=== PATIENT | female | born 1950 | race Caucasian/White ===

== ENCOUNTER 2019-01-18 18:47 | Inpatient (IN) | payer MEDICARE, OTHER ==
[~2019-01-18] VITALS: Ht 162.6 cm; Wt 53.5 kg
[~2019-01-18 18:47] MED LIST: ALBIPROI; ALBIPROI INH; ALBU90OI61 INH; ASPI81CH PO; ASPI81EC PO; ATOR20 PO; Aspir 8181 MG PO; Aspirin EC81 MG PO; CITA20 PO; COMBIVENT RESPIM4 GM IH; Citalopram HBr40 MG PO; Crestor40 MG PO; DIAZ10 PO; DIAZ5 PO; DOCU100 PO; DOXY100 PO; FERR325 PO; FISH1000 PO; FLUSAL2505 INH; FLUT110OIA; FLUT110OIA IH; FLUT44OIA INH; FURO20 PO; GUAI600T33 PO; HYDACE10B PO; HYDACE5 PO; HYDACE5325 PO; HYDACE7.5 PO; HYDR-86 PO; IRON DAILY; LISI20 PO; LORTAB 10-3251 EACH PO; METO50ER PO; METPRE4DP PO; MINOIL PR; MIRT15 PO; MIRT30 PO; Norco 10-325 T1 EACH PO; Norco 5-325 Ta1 EACH PO; OMEP20ER PO; ONDA4ODT MM; OXYACE7.5T PO; OXYC10TA19 PO; POLY17UD PO; POTCHL10ER PO; PRAV20 PO; PROBIOTIC; PROM25 PO; Pravastatin Sod40 MG PO; Prednisone20 MG PO; Prilosec Otc20 MG PO; QUET25 PO; RANI150 PO; RXHYDACE PO; SENN187 PO; TIZA4 PO; TRAM50 PO; TRAZ100 PO; TRAZ50 PO; TUDORZA PRESS400 MCG IH; VENL75ER PO; Vibramycin100 MG PO; WARF2.5 PO; WARF5 PO; XARELTO PO; XARELTO15 MG PO; XARELTO20 MG PO; ZIPR80 PO; Zithromax250 MG PO
[2019-01-18 19:35] LABS: BASOPHILS ABSOLUTE AUTO 0.01 K/mm3 (0.00-0.23); BASOPHILS PERCENT AUTO 0 % (0-2); EOSINOPHILS PERCENT AUTO 0 % (0-6); Hemoglobin 14.9 g/dL (11.5-16.0); IMMATURE GRAN ABSOLUTE AUTO 0.01 K/mm3 (0.00-0.10); IMMATURE GRAN PERCENT AUTO 0 % (0-1); LYMPHOCYTES ABSOLUTE AUTO 0.53 K/mm3 (0.84-5.20); LYMPHOCYTES PERCENT AUTO 13 % (21-46); MONOCYTES PERCENT AUTO 2 % (4-13); Mean Corpuscular HGB 31.2 pg (26.0-34.0); Mean Corpuscular HGB Conc 32.4 g/dL (31.5-36.5); Mean Corpuscular Volume 96 fL (80-100); Mean Platelet Volume 9.9 fL (9.1-12.4); NEUTROPHILS ABSOLUTE AUTO 3.58 K/mm3 (1.96-9.15); NEUTROPHILS PERCENT AUTO 85 % (41-73); Platelet Count 177 K/mm3 (150-400); RDW Coefficient Variation 12.7 % (11.7-14.2); Red Blood Cell Count 4.77 M/mm3 (3.80-5.20); White Blood Cell Count 4.23 K/mm3 (4.00-11.30)
[2019-01-18 19:57] LABS: Alanine Aminotransfer (ALT/SGP 23 U/L (12-78); Albumin, Blood 3.1 g/dL (3.4-5.0); Albumin/Globulin Ratio 0.7 (0.8-1.8); Alk Phos 124 U/L (50-136); Anion Gap 7 mmol/L (6-16); Aspartate Aminotrans (AST/SGOT 63 U/L (12-37); Bilirubin, Total 0.4 mg/dL (0.1-1.0); Blood Urea Nitrogen 13 mg/dL (8-24); Bun/Creatinine Ratio 21.3 (12.0-20.0); CO2, Blood 32 mmol/L (21-32); Calcium, Blood 8.8 mg/dL (8.5-10.1); Chloride, Blood 102 mmol/L (98-108); Creatinine, Blood 0.61 mg/dL (0.40-1.00); Globulin, Blood 4.2 g/dL (2.2-4.0); Glomerular Filtration Rate >60 (60-); Glucose, Blood 230 mg/dL (70-99); Potassium, Blood 3.5 mmol/L (3.5-5.5); Sodium, Blood 141 mmol/L (136-145); Total Protein, Blood 7.3 g/dL (6.4-8.2)
[2019-01-18 20:43] LABS: PO2 Arterial 70.5 mmHg (80-100); pH Blood Arterial 7.45 (7.35-7.45)
[2019-01-18] MEDS ORDERED: RISP.25 PO (20:47)
[2019-01-18] MEDS ORDERED: MORPHINE SULFAT10 MG PO (20:48)
[2019-01-18] MEDS ORDERED: Carvedilol3.125 MG PO (20:49)
[2019-01-18] MEDS ORDERED: PRINIVIL10 MG PO (20:49)
[2019-01-18] MEDS ORDERED: Isosorbide Mono30 MG PO (20:55)
[2019-01-18] MEDS ORDERED: GABA300 PO (20:55)
[2019-01-18] MEDS ORDERED: Zantac150 MG PO (21:06)
[2019-01-18] MEDS ORDERED: CLEARLAX119 GM PO (21:07)
[2019-01-18] MEDS ORDERED: Flovent 220 Ora12 GM INH (21:07)
[2019-01-18 23:49] LABS: Source, Urine Clean Catch
--- NOTE | 2019-01-18 23:51 | NUR ---
PT ARRIVED TO PCU 13 Pt arrived to pcu 13 at approx 2250 via gurney. pt transferred to PCU 13 bed via slider sheet d/t pt reported weakness. Pt on 2L NC at time of arrival, breathing easy and unlabored, pt reports SOB and DÍAZ. VSS. Tele monitor reveals NSR at 84. Pt denies chest pain or pressure. Pt does report L chest wall pain, pt medicated per emar. RT at bedside with pt at approx 2330 for chest physiotherapy, pt tolerated well. Pt also placed on airvo for humidification. Pt tolerating RT treatments well. See admission assessment for detailed systems assessment.
[2019-01-19 00:10] LABS: Appearance, Urine Clear (Clear); Bilirubin, Urine Neg (Neg); Blood, Urine 1+ (Neg); Color, Urine Yellow (P-Yellow); Glucose Qualitative, Urine 2+ (Neg); Ketones, Urine 3+ (Neg); Leukocyte Esterase, Urine 1+ (Neg); Nitrite, Urine Neg (Neg); Protein, Urine 2+ (Neg); Urobilinogen, Urine NORM (Normal)
[2019-01-19 00:14] LABS: Bacteria Rare /hpf; Red Blood Cells, Urine 0-2 /hpf (0-2); Squamous Epithelial Cells Rare /hpf (Few); White Blood Cells, Urine 0-2 /hpf (0-5)
[2019-01-19 01:19] LABS: Adenovirus Not Detected (NOT DETECT); Bordetella pertussis Not Detected (NOT DETECT); Chlamydophila pneumoniae Not Detected (NOT DETECT); Coronavirus 229E Not Detected (NOT DETECT); Coronavirus HKU1 Not Detected (NOT DETECT); Coronavirus NL63 Not Detected (NOT DETECT); Coronavirus OC43 Not Detected (NOT DETECT); Human Metapneumovirus Not Detected (NOT DETECT); Human Rhinovirus/Enterovirus Detected (NOT DETECT); Influenza A Not Detected (NOT DETECT); Influenza A/2009-H1 Not Detected (NOT DETECT); Influenza A/H1 Not Detected (NOT DETECT); Influenza A/H3 Not Detected (NOT DETECT); Influenza B Not Detected (NOT DETECT); Mycoplasma pneumoniae Not Detected (NOT DETECT); Parainfluenza Virus 1 Not Detected (NOT DETECT); Parainfluenza Virus 2 Not Detected (NOT DETECT); Parainfluenza Virus 3 Not Detected (NOT DETECT); Parainfluenza Virus 4 Not Detected (NOT DETECT); Respiratory Syncytial Virus Not Detected (NOT DETECT)
[2019-01-19 01:38] LABS: BASOPHILS ABSOLUTE AUTO 0.01 K/mm3 (0.00-0.23); BASOPHILS PERCENT AUTO 0 % (0-2); EOSINOPHILS PERCENT AUTO 0 % (0-6); Hematocrit 37.6 % (33.0-51.0); Hemoglobin 12.4 g/dL (11.5-16.0); IMMATURE GRAN ABSOLUTE AUTO 0.01 K/mm3 (0.00-0.10); IMMATURE GRAN PERCENT AUTO 0 % (0-1); LYMPHOCYTES ABSOLUTE AUTO 0.71 K/mm3 (0.84-5.20); LYMPHOCYTES PERCENT AUTO 18 % (21-46); MONOCYTES ABSOLUTE AUTO 0.33 K/mm3 (0.16-1.47); MONOCYTES PERCENT AUTO 8 % (4-13); Mean Corpuscular HGB 31.4 pg (26.0-34.0); Mean Corpuscular Volume 95 fL (80-100); Mean Platelet Volume 10.2 fL (9.1-12.4); NEUTROPHILS ABSOLUTE AUTO 2.99 K/mm3 (1.96-9.15); NEUTROPHILS PERCENT AUTO 74 % (41-73); Platelet Count 138 K/mm3 (150-400); RDW Coefficient Variation 12.6 % (11.7-14.2); Red Blood Cell Count 3.95 M/mm3 (3.80-5.20); White Blood Cell Count 4.05 K/mm3 (4.00-11.30)
[2019-01-19 01:55] LABS: Alanine Aminotransfer (ALT/SGP 15 U/L (12-78); Albumin, Blood 2.6 g/dL (3.4-5.0); Albumin/Globulin Ratio 0.8 (0.8-1.8); Alk Phos 95 U/L (50-136); Anion Gap 8 mmol/L (6-16); Aspartate Aminotrans (AST/SGOT 41 U/L (12-37); Bilirubin, Total 0.4 mg/dL (0.1-1.0); Blood Urea Nitrogen 12 mg/dL (8-24); Bun/Creatinine Ratio 22.5 (12.0-20.0); CO2, Blood 31 mmol/L (21-32); Calcium, Blood 8.3 mg/dL (8.5-10.1); Chloride, Blood 105 mmol/L (98-108); Creatinine, Blood 0.53 mg/dL (0.40-1.00); Globulin, Blood 3.3 g/dL (2.2-4.0); Glomerular Filtration Rate >60 (60-); Glucose, Blood 141 mg/dL (70-99); International Normalized Ratio 1.04; Magnesium, Blood 1.9 mg/dL (1.6-2.4); Potassium, Blood 3.3 mmol/L (3.5-5.5); Sodium, Blood 144 mmol/L (136-145); Total Protein, Blood 5.9 g/dL (6.4-8.2)
--- NOTE | 2019-01-19 05:24 | NUR ---
Shift Summary No acute changes this shift. VSS. Pt breathing easy and unlabored on airvo at 2L. Airvo is used for humidification. Pt coughing, thick, webb mucous. Chest physiotherapy performed x1 this shift. Pt insturcted on use of flutter valve, complaint and using flutter valve this shift. Pt ambulates with SBA to Bathroom for voiding. Denies chest pain or pressure. Denies dizziness or notable SOB with ambulation. Pt is alert and oriented, calls appropriately, able to make needs known. Will continue to monitor and provide care until day RN assumes care.
--- NOTE | 2019-01-19 08:04 | NUR ---
AM NOTE. ASSUMED CARE OF PT APROX 0700. PT IS A&Ox4 AND SBA IN THE ROOM. PT WAS ADMITTED FOR RESP FAILURE. PT IS ON 2L NC AT THIS TIME WITH O2 SATS AT 93%. PT WANTED A BREAK FROM THE AIRVO. PT IS ON RA AT HOME. L/S COARSE RHOCHI T/O AND DIM IN THE BASES, PT WAS UNABLE TO TOLERATE THE CHEST PHSYIOTHERAPY THIS AM D/T SEVERE PAIN ON THE RIGHT SIDE/LOWER BACK. PT INSTRUCTED TO USE THE FLUTTER VALVE AT THIS TIME INSTEAD. PT AGREEABLE TO THIS PLAN OF CARE. PT IS IN NSR IN THE 70'S-90'S. PT'S BP 179/99, NO EDEMA NOTED ON ASSESSMENT. BT PRESENT AND NORMOACTIVE, ABD IS SOFT AND NONTENDER TO PALP. CALL LIGHT IN REACH, BED IS LOCKED AND LOW WILL CONTINUE TO MONITOR.
--- NOTE | 2019-01-19 16:46 | NUR ---
PATIENT ARRIVES VIA W/C FROM PCU AT 1610. ON 4 LPM VIA N/C. SPEAKS IN COMPLETE SENTENCES. AMBULATORY FROM CHAIR TO BED WITH STANDBY ASSIST. LUNGS CLEAR TO DIMINISHED T/O. SATS MID TO LOW 90'S. ORIENTED TO ROOM. TM.
--- NOTE | 2019-01-19 17:12 | NUR ---
PER DR. LANE Aaron CONTINUOUS SAT MONITOR.
--- NOTE | 2019-01-20 04:37 | NUR ---
SHIFT SUMMARY: 68 Y/O FEMALE RESTED COMFORTABLY IN HIGH FOWLERS WHILE WEARING O2 AT 2L/M PER NASAL CANNULA, INCREASED DYSPNEA NOTED WITH SLIGHT ACTIVITY, ABLE TRANSFER TO [facility] X 1 STANDBY ASSIST, DENIES PAIN OR NAUSEA, BED ALARM APPLIED, BED LOW POSITION.
[2019-01-20] MEDS ORDERED: ALBU2.5V5 INH (09:54)
[2019-01-20] MEDS ORDERED: GUAI600T33 PO (10:07)
[2019-01-20] MEDS ORDERED: ALBU3IS INH (10:10)
[2019-01-20] MEDS ORDERED: AZIT250 PO (10:12)
[2019-01-20] MEDS ORDERED: FLUT1DIS5 INH (10:13)
[2019-01-20] MEDS ORDERED: Prednisone10 MG PO (10:15)
--- NOTE | 2019-01-20 11:10 | NUR ---
In responding to patient referral, I visited patient. Patient openly shares about the of her 2 years ago, the painful family unit complications and her on-going medical issues. Patient becomes quite tearful as she tells of her 's at home and reveals that both her and the patient were on hospice at the time of his passing. She also is dramatically effected by the tension that exists between her son, Liam, and the rest of the family. Patient talks about the long battles she has had with her health and how weary she is. I listen empathically, provide grief support, provide pastoral community health counselor centered around forgiveness and reconciliation, reinforce helpful attitudes and practices and provide prayer. Patient responds well and shows signs of catharsis and reduced stress. I will continue to remain available to patient and family.
--- NOTE | 2019-01-20 15:03 | NUR ---
Pt. Is doing well , pastoral care provided and pt. may go home today or morropw.
--- NOTE | 2019-01-20 15:25 | NUR ---
DISCHARGE PT DISCHARGED TO HOME WITH HOME HEALTH. THIS RN EXPLAINED DISCHARGE INSTSRUCTIONS AND MEDICATIONS TO PT AND SHE REPORTS SHE UNDERSTANDS. PT TRASNFERRED TO PRIVATE VEHICLE VIA WHEELCHAIR BY HARDBOARD COATING MACHINE OPERATOR. PT'S BELONGINGS WITH PT. PT HAS NEW PORTABLE OXYGEN WITH HER.
== END 2019-01-20 14:55 | disposition home health service (06) | DRG 189 ==
LOC: ER 18:47 → ERHOLD 21:25 → PCU 22:49 → MEDS 01-19 16:12 → ENPENDDIS 01-20 10:00 → MEDS 01-20 14:55
PROVIDERS: Emergency Medicine; Nurse Practitioner Acute Care; ADMIT Hospitalist
DX: J96.01 Acute respiratory failure with hypoxia (principal); J18.9 Pneumonia, unspecified organism; J44.1 Chronic obstructive pulmonary disease with (acute) exacerbation; F11.20 Opioid dependence, uncomplicated; I24.8 Other forms of acute ischemic heart disease; J40 Bronchitis, not specified as acute or chronic; J06.9 Acute upper respiratory infection, unspecified; I25.2 Old myocardial infarction; Z86.711 Personal history of pulmonary embolism; E78.5 Hyperlipidemia, unspecified; I25.10 Atherosclerotic heart disease of native coronary artery without angina pectoris; F41.8 Other specified anxiety disorders; F17.210 Nicotine dependence, cigarettes, uncomplicated; G47.00 Insomnia, unspecified; G89.4 Chronic pain syndrome; E78.00 Pure hypercholesterolemia, unspecified; Z79.82 Long term (current) use of aspirin; K21.0 Gastro-esophageal reflux disease with esophagitis; D69.6 Thrombocytopenia, unspecified; E87.6 Hypokalemia; I10 Essential (primary) hypertension; F41.9 Anxiety disorder, unspecified; M79.7 Fibromyalgia
CPT/HCPCS: 0099U; 36415; 36600; 71045; 71046; 71260; 80053; 81001; 82803; 83605; 83690; 83735; 83880; 84145; 84484; 85025; 85610; 87040; 87070; 87086; 87205; 93005; 93010; 93306; 94640; 94667; 94668; 94760; 94761; 96365; 96367; 97110; 97116; 97162; 97166; 97530; 97535; 99285-25; A9270-GY; J0456; J0696; J1650; J2930; J3010; J7030; J7050; Q9967

== ENCOUNTER 2019-06-30 18:14 | Emergency (ER) | payer MEDICARE, OTHER ==
[~2019-06-30] VITALS: Ht 162.6 cm; Wt 59.0 kg
[~2019-06-30 18:14] MED LIST changes: +ALBU2.5V5 INH; +ALBU3IS INH; +AZIT250 PO; +CLEARLAX119 GM PO; +Carvedilol3.125 MG PO; +FLUT1DIS5 INH; +Flovent 220 Ora12 GM INH; +GABA300 PO; +Isosorbide Mono30 MG PO; +MORPHINE SULFAT10 MG PO; +PRINIVIL10 MG PO; +Prednisone10 MG PO; +RISP.25 PO; +Zantac150 MG PO
[2019-06-30 19:11] LABS: BASOPHILS ABSOLUTE AUTO 0.04 K/mm3 (0.00-0.23); BASOPHILS PERCENT AUTO 1 % (0-2); EOSINOPHILS ABSOLUTE AUTO 0.09 K/mm3 (0.00-0.68); EOSINOPHILS PERCENT AUTO 2 % (0-6); Hematocrit 40.3 % (33.0-51.0); Hemoglobin 12.7 g/dL (11.5-16.0); IMMATURE GRAN ABSOLUTE AUTO 0.01 K/mm3 (0.00-0.10); IMMATURE GRAN PERCENT AUTO 0 % (0-1); LYMPHOCYTES ABSOLUTE AUTO 1.66 K/mm3 (0.84-5.20); LYMPHOCYTES PERCENT AUTO 36 % (21-46); MONOCYTES ABSOLUTE AUTO 0.32 K/mm3 (0.16-1.47); MONOCYTES PERCENT AUTO 7 % (4-13); Mean Corpuscular HGB 31.1 pg (26.0-34.0); Mean Corpuscular HGB Conc 31.5 g/dL (31.5-36.5); Mean Corpuscular Volume 99 fL (80-100); Mean Platelet Volume 9.7 fL (9.1-12.4); NEUTROPHILS ABSOLUTE AUTO 2.56 K/mm3 (1.96-9.15); NEUTROPHILS PERCENT AUTO 55 % (41-73); Platelet Count 166 K/mm3 (150-400); RDW Coefficient Variation 12.5 % (11.7-14.2); RDW Standard Deviation 45.1 fL (35.1-46.3); Red Blood Cell Count 4.09 M/mm3 (3.80-5.20); White Blood Cell Count 4.68 K/mm3 (4.00-11.30)
[2019-06-30 19:17] LABS: Source, Urine Clean Catch
[2019-06-30 19:23] LABS: Bilirubin, Urine Neg (Neg); Blood, Urine Neg (Neg); Glucose Qualitative, Urine Neg (Neg); Ketones, Urine Neg (Neg); Leukocyte Esterase, Urine 1+ (Neg); Nitrite, Urine Neg (Neg); Protein, Urine Neg (Neg); Urobilinogen, Urine 2+ (Normal)
[2019-06-30 19:33] LABS: Appearance, Urine Clear (Clear); Color, Urine Yellow (P-Yellow); Red Blood Cells, Urine 0-2 /hpf (0-2)
[2019-06-30 19:34] LABS: Bacteria Rare /hpf; Squamous Epithelial Cells Few /hpf (Few)
[2019-06-30 19:40] LABS: Albumin, Blood 3.5 g/dL (3.4-5.0); Albumin/Globulin Ratio 1.2 (0.8-1.8); Alk Phos 114 U/L (50-136); Anion Gap 2 mmol/L (6-16); Aspartate Aminotrans (AST/SGOT 28 U/L (12-37); Bilirubin, Total 0.4 mg/dL (0.1-1.0); Blood Urea Nitrogen 16 mg/dL (8-24); Bun/Creatinine Ratio 24.7 (12.0-20.0); CO2, Blood 34 mmol/L (21-32); Calcium, Blood 8.5 mg/dL (8.5-10.1); Chloride, Blood 106 mmol/L (98-108); Creatinine, Blood 0.65 mg/dL (0.40-1.00); Glomerular Filtration Rate >60 (60-); Glucose, Blood 101 mg/dL (70-99); Potassium, Blood 3.5 mmol/L (3.5-5.5); Sodium, Blood 142 mmol/L (136-145); Total Protein, Blood 6.5 g/dL (6.4-8.2)
[2019-06-30 19:50] LABS: Alanine Aminotransfer (ALT/SGP 15 U/L (12-78)
[2019-06-30] MEDS ORDERED: LIDO700A20 TOP (20:51)
== END 2019-06-30 21:15 | disposition home or self-care (01) ==
LOC: ER 18:14
PROVIDERS: Physician Assistant
DX: R07.89 Other chest pain (principal); Z88.2 Allergy status to sulfonamides; Z79.899 Other long term (current) drug therapy; Z79.82 Long term (current) use of aspirin; Z79.2 Long term (current) use of antibiotics; Z79.52 Long term (current) use of systemic steroids; I25.2 Old myocardial infarction; J44.9 Chronic obstructive pulmonary disease, unspecified; F32.9 Major depressive disorder, single episode, unspecified; Z87.891 Personal history of nicotine dependence
CPT/HCPCS: 36415; 74176; 80053; 81001; 83690; 85025; 87086; 99284-25; A9270-GY

== ENCOUNTER 2019-09-22 10:25 | Emergency (ER) | payer MEDICARE, OTHER ==
[~2019-09-22] VITALS: Ht 162.6 cm; Wt 59.0 kg
[~2019-09-22 10:25] MED LIST changes: +LIDO700A20 TOP
[2019-09-22 10:54] LABS: BASOPHILS ABSOLUTE AUTO 0.02 K/mm3 (0.00-0.23); BASOPHILS PERCENT AUTO 0 % (0-2); EOSINOPHILS ABSOLUTE AUTO 0.04 K/mm3 (0.00-0.68); EOSINOPHILS PERCENT AUTO 1 % (0-6); Hematocrit 40.2 % (33.0-51.0); IMMATURE GRAN ABSOLUTE AUTO 0.02 K/mm3 (0.00-0.10); IMMATURE GRAN PERCENT AUTO 0 % (0-1); LYMPHOCYTES ABSOLUTE AUTO 0.69 K/mm3 (0.84-5.20); LYMPHOCYTES PERCENT AUTO 10 % (21-46); MONOCYTES ABSOLUTE AUTO 0.33 K/mm3 (0.16-1.47); MONOCYTES PERCENT AUTO 5 % (4-13); Mean Corpuscular HGB 31.1 pg (26.0-34.0); Mean Corpuscular HGB Conc 32.3 g/dL (31.5-36.5); Mean Corpuscular Volume 96 fL (80-100); Mean Platelet Volume 9.6 fL (9.1-12.4); NEUTROPHILS PERCENT AUTO 85 % (41-73); Platelet Count 158 K/mm3 (150-400); RDW Coefficient Variation 12.2 % (11.7-14.2); RDW Standard Deviation 42.9 fL (35.1-46.3); Red Blood Cell Count 4.18 M/mm3 (3.80-5.20)
[2019-09-22 11:16] LABS: Alanine Aminotransfer (ALT/SGP 16 U/L (12-78); Albumin, Blood 3.6 g/dL (3.4-5.0); Albumin/Globulin Ratio 1.1 (0.8-1.8); Alk Phos 127 U/L (50-136); Anion Gap 8 mmol/L (6-16); Aspartate Aminotrans (AST/SGOT 31 U/L (12-37); Bilirubin, Total 0.6 mg/dL (0.1-1.0); Blood Urea Nitrogen 10 mg/dL (8-24); Bun/Creatinine Ratio 12.9 (12.0-20.0); CO2, Blood 29 mmol/L (21-32); Calcium, Blood 8.2 mg/dL (8.5-10.1); Chloride, Blood 104 mmol/L (98-108); Creatinine, Blood 0.77 mg/dL (0.40-1.00); Globulin, Blood 3.3 g/dL (2.2-4.0); Glomerular Filtration Rate >60 (60-); Glucose, Blood 123 mg/dL (70-99); Potassium, Blood 3.5 mmol/L (3.5-5.5); Sodium, Blood 141 mmol/L (136-145); Total Protein, Blood 6.9 g/dL (6.4-8.2); Troponin I <0.015 ng/mL (0.000-0.040)
[2019-09-22 12:09] LABS: Source, Urine Clean Catch
[2019-09-22 12:18] LABS: Bilirubin, Urine Neg (Neg); Blood, Urine Neg (Neg); Glucose Qualitative, Urine Neg (Neg); Ketones, Urine Neg (Neg); Leukocyte Esterase, Urine 1+ (Neg); Nitrite, Urine Neg (Neg); Protein, Urine Neg (Neg); Urobilinogen, Urine NORM (Normal)
[2019-09-22 12:29] LABS: Appearance, Urine Clear (Clear); Color, Urine Yellow (P-Yellow)
[2019-09-22 12:30] LABS: Bacteria Few /hpf; Red Blood Cells, Urine 0-2 /hpf (0-2); Squamous Epithelial Cells Few /hpf (Few)
== END 2019-09-22 13:02 | disposition home or self-care (01) ==
LOC: ER 10:25
PROVIDERS: Emergency Medicine
DX: S70.02XA Contusion of left hip, initial encounter (principal); R29.898 Other symptoms and signs involving the musculoskeletal system; I25.2 Old myocardial infarction; J44.9 Chronic obstructive pulmonary disease, unspecified; F31.9 Bipolar disorder, unspecified; D64.9 Anemia, unspecified; I10 Essential (primary) hypertension; F41.9 Anxiety disorder, unspecified; K21.9 Gastro-esophageal reflux disease without esophagitis; Z88.2 Allergy status to sulfonamides; Z79.899 Other long term (current) drug therapy; Z79.82 Long term (current) use of aspirin; Z87.891 Personal history of nicotine dependence; W07.XXXA Fall from chair, initial encounter
CPT/HCPCS: 73502; 80053; 81001; 84484; 85025; 87086; 93005; 93010; 99284-25

== ENCOUNTER 2019-09-22 18:07 | Inpatient (IN) | payer MEDICARE, OTHER ==
[~2019-09-22] VITALS: Ht 162.6 cm; Wt 58.5 kg
[2019-09-22 19:55] LABS: Troponin I 0.683 ng/mL (0.000-0.040)
[2019-09-22 20:05] LABS: BASOPHILS ABSOLUTE AUTO 0.02 K/mm3 (0.00-0.23); BASOPHILS PERCENT AUTO 0 % (0-2); EOSINOPHILS ABSOLUTE AUTO 0.01 K/mm3 (0.00-0.68); EOSINOPHILS PERCENT AUTO 0 % (0-6); Hematocrit 41.3 % (33.0-51.0); Hemoglobin 13.5 g/dL (11.5-16.0); IMMATURE GRAN ABSOLUTE AUTO 0.02 K/mm3 (0.00-0.10); IMMATURE GRAN PERCENT AUTO 0 % (0-1); LYMPHOCYTES ABSOLUTE AUTO 0.71 K/mm3 (0.84-5.20); LYMPHOCYTES PERCENT AUTO 9 % (21-46); MONOCYTES ABSOLUTE AUTO 0.52 K/mm3 (0.16-1.47); MONOCYTES PERCENT AUTO 7 % (4-13); Mean Corpuscular HGB 30.8 pg (26.0-34.0); Mean Corpuscular HGB Conc 32.7 g/dL (31.5-36.5); Mean Corpuscular Volume 94 fL (80-100); NEUTROPHILS ABSOLUTE AUTO 6.41 K/mm3 (1.96-9.15); NEUTROPHILS PERCENT AUTO 83 % (41-73); Platelet Count 170 K/mm3 (150-400); RDW Coefficient Variation 12.1 % (11.7-14.2); RDW Standard Deviation 42.4 fL (35.1-46.3); Red Blood Cell Count 4.38 M/mm3 (3.80-5.20); White Blood Cell Count 7.69 K/mm3 (4.00-11.30)
[2019-09-22 20:19] LABS: Anion Gap 7 mmol/L (6-16); Blood Urea Nitrogen 9 mg/dL (8-24); Bun/Creatinine Ratio 12.2 (12.0-20.0); CO2, Blood 30 mmol/L (21-32); Calcium, Blood 8.6 mg/dL (8.5-10.1); Chloride, Blood 104 mmol/L (98-108); Creatinine, Blood 0.74 mg/dL (0.40-1.00); Glomerular Filtration Rate >60 (60-); Glucose, Blood 112 mg/dL (70-99); Potassium, Blood 3.4 mmol/L (3.5-5.5); Sodium, Blood 141 mmol/L (136-145)
[2019-09-22 21:34] LABS: Troponin I 1.12 ng/mL (0.000-0.040)
--- NOTE | 2019-09-22 22:51 | NUR ---
REPORT RECIEVED REPORT FROM WENDY DELUNA ED @ 0070. AWAITING PATIENT ARRIVAL
[2019-09-23 00:11] LABS: International Normalized Ratio 1.02; Prothrombin Time Results 10.9 Sec (9.7-11.5)
[2019-09-23 00:32] LABS: Creatine Kinase MB 2.1 ng/mL (0.0-3.6); Creatine Kinase MB Index 0.9 (0.0-4.0)
[2019-09-23 02:52] LABS: Adenovirus Not Detected (NOT DETECT); Bordetella pertussis Not Detected (NOT DETECT); Chlamydophila pneumoniae Not Detected (NOT DETECT); Coronavirus 229E Not Detected (NOT DETECT); Coronavirus HKU1 Not Detected (NOT DETECT); Coronavirus NL63 Not Detected (NOT DETECT); Coronavirus OC43 Not Detected (NOT DETECT); Human Metapneumovirus Not Detected (NOT DETECT); Human Rhinovirus/Enterovirus Not Detected (NOT DETECT); Influenza A/2009-H1 Not Detected (NOT DETECT); Influenza A/H1 Not Detected (NOT DETECT); Influenza A/H3 Not Detected (NOT DETECT); Influenza B Not Detected (NOT DETECT); Mycoplasma pneumoniae Not Detected (NOT DETECT); Parainfluenza Virus 1 Not Detected (NOT DETECT); Parainfluenza Virus 2 Not Detected (NOT DETECT); Parainfluenza Virus 3 Not Detected (NOT DETECT); Parainfluenza Virus 4 Not Detected (NOT DETECT); Respiratory Syncytial Virus Not Detected (NOT DETECT)
[2019-09-23 05:42] LABS: BASOPHILS ABSOLUTE AUTO 0.03 K/mm3 (0.00-0.23); BASOPHILS PERCENT AUTO 0 % (0-2); EOSINOPHILS ABSOLUTE AUTO 0.04 K/mm3 (0.00-0.68); EOSINOPHILS PERCENT AUTO 1 % (0-6); Hematocrit 40.6 % (33.0-51.0); IMMATURE GRAN ABSOLUTE AUTO 0.02 K/mm3 (0.00-0.10); IMMATURE GRAN PERCENT AUTO 0 % (0-1); LYMPHOCYTES ABSOLUTE AUTO 1.21 K/mm3 (0.84-5.20); LYMPHOCYTES PERCENT AUTO 18 % (21-46); MONOCYTES ABSOLUTE AUTO 0.56 K/mm3 (0.16-1.47); MONOCYTES PERCENT AUTO 8 % (4-13); Mean Corpuscular HGB 30.7 pg (26.0-34.0); Mean Corpuscular Volume 96 fL (80-100); Mean Platelet Volume 9.6 fL (9.1-12.4); NEUTROPHILS ABSOLUTE AUTO 4.89 K/mm3 (1.96-9.15); NEUTROPHILS PERCENT AUTO 73 % (41-73); Platelet Count 151 K/mm3 (150-400); RDW Coefficient Variation 12.1 % (11.7-14.2); RDW Standard Deviation 42.4 fL (35.1-46.3); Red Blood Cell Count 4.24 M/mm3 (3.80-5.20); White Blood Cell Count 6.75 K/mm3 (4.00-11.30)
--- NOTE | 2019-09-23 05:47 | NUR ---
SHIFT SUMMARY RECIEVED REPORT FROM REGI NGUYEN, ED @ 2632. PATIENT ARRIVED VIA STRETCHER @ 2305; LITTLE ASSISTANCE REQUIRED DURING TRANSFER. ORIENTED TO ROOM AND CALL SYSTEM. A/O, ABLE TO MAKE NEEDS KNOWN. COOPERATIVE WITH CARE. ANSWERS QUESTIONS APPROPRIATELY. CURRENTLY WEARING 2L VIA NC SPO2 >92%; RESPIRATIONS EVEN WITH EQUAL RISE/FALL. HEPARIN INFUSING TO RFA. NEW 22G IV PLACED TO LAC FOR K+ INFUSION; NO COMPLICATIONS. UP WITH 1P ASSIST TO BSC. NOTHING ACUTE NOTED. VSS. BED IN LOWEST POSITION. CALL LIGHT AND BELONGINGS WITHIN REACH. WCTM. REPORT TO ONCNATTY NGUYEN.
[2019-09-23 06:07] LABS: Alanine Aminotransfer (ALT/SGP 16 U/L (12-78); Albumin, Blood 3.2 g/dL (3.4-5.0); Albumin/Globulin Ratio 0.9 (0.8-1.8); Alk Phos 123 U/L (50-136); Anion Gap 6 mmol/L (6-16); Aspartate Aminotrans (AST/SGOT 32 U/L (12-37); Bilirubin, Total 1.3 mg/dL (0.1-1.0); Blood Urea Nitrogen 9 mg/dL (8-24); Bun/Creatinine Ratio 13.1 (12.0-20.0); CO2, Blood 33 mmol/L (21-32); CPK Creatine Kinase 336 U/L (26-193); Calcium, Blood 8.6 mg/dL (8.5-10.1); Chloride, Blood 102 mmol/L (98-108); Creatinine, Blood 0.69 mg/dL (0.40-1.00); Globulin, Blood 3.4 g/dL (2.2-4.0); Glomerular Filtration Rate >60 (60-); Glucose, Blood 97 mg/dL (70-99); Potassium, Blood 3.4 mmol/L (3.5-5.5); Sodium, Blood 141 mmol/L (136-145); Total Protein, Blood 6.6 g/dL (6.4-8.2)
[2019-09-23 06:19] LABS: Creatine Kinase MB Index 1.2 (0.0-4.0)
--- NOTE | 2019-09-23 07:12 | NUR ---
0646 CALLED ON-CALL PHYSICIAN; NO ANSWER 0712 SPOKE TO ON-CALL PHYSICIAN; NO NEW ORDERS
--- NOTE | 2019-09-23 07:30 | NUR ---
HEPARIN VERIFIED. HEPARIN VERIFIED AT CHANGE OF SHIFT WITH ADAMA STACY RN.
[2019-09-23 13:50] LABS: Creatine Kinase MB 4.5 ng/mL (0.0-3.6); Creatine Kinase MB Index 1.6 (0.0-4.0)
[2019-09-23 14:01] LABS: Troponin I 2.38 ng/mL (0.000-0.040)
--- NOTE | 2019-09-23 16:40 | NUR ---
TROPONIN LABS DR. PANIAGUA NOTIFIED THAT LAST TROP WAS ELEVATED AND ANGIO HAS BEEN POSTPONED TO TOMORROW. DR. PANIAGUA STATES HE WILL ORDER REPEAT TROPONIN.
--- NOTE | 2019-09-23 18:20 | NUR ---
SHIFT SUMMARY CONTINUED ELEVATED TROPS THIS SHIFT. AWARE. PT SCHEDULED FOR ANGIO IN THE AM. NPO AT MIDNIGHT. HEPARIN DRIP INFUSING AT THIS TIME. 15 U/KG/HR. PT DENIES CP THROUGHOUT SHIFT. VSS. WILL CONTINUE TO MONITOR UNTIL TURNOVER IS COMPLETE.
--- NOTE | 2019-09-23 21:05 | NUR ---
Pt pleasant and cooperative lying in bed. Was assisted to bedside commode before lying back to sleep. Pt able to ask for assistance when needed and requested lights out so she could sleep. O2 stat at 96% on 2 liters via nasal cannula. Labs drawn again around 2029 showing a drop in troponin.
[2019-09-24 05:25] LABS: BASOPHILS ABSOLUTE AUTO 0.03 K/mm3 (0.00-0.23); BASOPHILS PERCENT AUTO 1 % (0-2); EOSINOPHILS ABSOLUTE AUTO 0.06 K/mm3 (0.00-0.68); EOSINOPHILS PERCENT AUTO 1 % (0-6); Hematocrit 36.8 % (33.0-51.0); Hemoglobin 11.9 g/dL (11.5-16.0); IMMATURE GRAN ABSOLUTE AUTO 0.01 K/mm3 (0.00-0.10); IMMATURE GRAN PERCENT AUTO 0 % (0-1); LYMPHOCYTES ABSOLUTE AUTO 1.25 K/mm3 (0.84-5.20); LYMPHOCYTES PERCENT AUTO 24 % (21-46); MONOCYTES ABSOLUTE AUTO 0.47 K/mm3 (0.16-1.47); MONOCYTES PERCENT AUTO 9 % (4-13); Mean Corpuscular HGB 30.8 pg (26.0-34.0); Mean Corpuscular HGB Conc 32.3 g/dL (31.5-36.5); Mean Corpuscular Volume 95 fL (80-100); Mean Platelet Volume 9.9 fL (9.1-12.4); NEUTROPHILS ABSOLUTE AUTO 3.41 K/mm3 (1.96-9.15); NEUTROPHILS PERCENT AUTO 65 % (41-73); Platelet Count 130 K/mm3 (150-400); RDW Coefficient Variation 12.3 % (11.7-14.2); RDW Standard Deviation 42.8 fL (35.1-46.3); Red Blood Cell Count 3.86 M/mm3 (3.80-5.20); White Blood Cell Count 5.23 K/mm3 (4.00-11.30)
--- NOTE | 2019-09-24 05:37 | NUR ---
Recieved report from Belinda NGUYEN at 1850. Pt A&o as well as cooperative with care during the shift. Pt able to verbalize needs and requested pain medication twice for pain in her right flank. Pt rested quietly for several hours during the night. Pt has not reported any new symptoms and has statted at 96% O2 on 2 liters oxygen via nasal cannula.
[2019-09-24 05:46] LABS: Anion Gap 7 mmol/L (6-16); Blood Urea Nitrogen 14 mg/dL (8-24); Bun/Creatinine Ratio 20.5 (12.0-20.0); CO2, Blood 32 mmol/L (21-32); Calcium, Blood 8.4 mg/dL (8.5-10.1); Chloride, Blood 104 mmol/L (98-108); Creatinine, Blood 0.68 mg/dL (0.40-1.00); Glomerular Filtration Rate >60 (60-); Glucose, Blood 138 mg/dL (70-99); Potassium, Blood 3.5 mmol/L (3.5-5.5); Sodium, Blood 143 mmol/L (136-145)
--- NOTE | 2019-09-24 06:31 | NUR ---
SUMMARY PT MADE NPO AT 0000 HRS. PT HAD SOME R FLANK PAIN AND TX PER EMAR W/ RELIEF. PT SLEPT WELL. PT CURRENTLY AWAKE AND RESTING. CALL LIGHT IN REACH.
--- NOTE | 2019-09-24 10:45 | NUR ---
REPORT GIVEN TO GETTERER REPORT GIVEN TO WENDY MCCABE. BELONGINGS SENT TO [facility]
--- NOTE | 2019-09-24 11:34 | NUR ---
RIGHT WRIST TR BAND IN PLACE. MOVES RIGHT FINGERS WITHOUT DIFFICULT, RADIAL PULSE PRESENT, DENIES PAIN, CAP REFILL 3 SECS.
--- NOTE | 2019-09-24 12:50 | NUR ---
DEFLATION OF BAND STARTED, REMOVED 2ML AIR. NO ACTIVE BLEEDING AT THIS TIME.
--- NOTE | 2019-09-24 12:57 | NUR ---
ADDITIONAL 2ML AIR REMOVED FROM RIGHT WRIST BAND.
--- NOTE | 2019-09-24 13:06 | NUR ---
2ML AIR REMOVED FROM RIGHT WRIST BAND, NO BLEEDING, WILL CONTINUE TO MONITOR.
--- NOTE | 2019-09-24 13:20 | NUR ---
REMAINING AIR REMOVED FROM RIGHT WRIST BAND, NO ACTIVE BLEEDING, WILL CONTINUE TO MONITOR.
--- NOTE | 2019-09-24 17:44 | NUR ---
SHIFT SUMMARY: ASSUMED CARE AFTER ANGIO CATH THIS AM. RIGHT WRIST TR BAND IN PLACE DURING ARRIVAL. TEGADERM OVER SITE AT THIS TIME, NO ACTIVE BLEEDING. ARM BOARD REMAINS IN PLACE AT RIGHT WRIST. A/A/0X4 DURING SHIFT. IV TO LEFT AC PATENT. PT EVAL TODAY, AMBULATES IN ROOM WITH WALKER AND STANDBY SHIRA. 02 2L VIA NC. VSS, DENIES CHEST PAIN. WILL CONTINUE TO MONITOR UNTIL CHANGE OF SHIFT.
--- NOTE | 2019-09-24 19:15 | NUR ---
ASSUMED CARE OF PT, BEDSIDE REPORT RECEIVED. PT IS ALERT AND ORIENTED, RECLINING IN BED AND WATCHING TV, SHE DENIES NUMBNESS/TINGLING, DENIES SOB/DYSPNEA, DENIES PAIN, DENIES N/V, STATES THAT SHE IS "JUST TIRED" THAT SHE HASN'T BEEN SLEEPING WELL, ONSET OF INABILITY TO SLEEP WITH ADMISSION TO HOSPITAL. SHE IS SPEAKING IN FULL SENTENCES WITHOUT VISIBLE INCREASED WORK OF BREATHING, SATS ARE MAINTAINED WITH OXYGEN VIA NASAL CANNULA AT 2 L/MIN, LUNGS ARE CLEAR THROUGHOUT WITH DIM RIGHT BASE. HRR, SINUS PER ADJUSTER LEADER TECH, PRESSURES MAINTAINING, RIGHT RADIAL ACCESS SITE IS WNL WITHOUT EVIDENCE OF HEMATOMA OR BLEEDING, DRESSING IS CDI WITH ARM BOARD IN PLACE, PT VERB UNDERSTANDING OF ACTIVITY RESTRICTIONS, SKIN IS PWD, NO EDEMA IS NOTED, BRISK CAP REFILL AT THIS TIME. NORMOACTIVE BOWEL TONES X 4, ABD SOFT, NONTENDER TO PALP.
--- NOTE | 2019-09-25 05:55 | NUR ---
Pt rests quietly throughout shift, continues to deny pain, n/v, sob/dyspnea, cp and pressure. She states that she did finally sleep well this shift. Right radial access site continues stable throughout shift, dressing remains cdi without evidence of hematoma or bleeding to site, skin remains warm and dry with brisk cap refill and strong pulses to right hand. Pt up to bsc or bathroom with fww and sba and tolerates well. repositions self well ind in bed.
--- NOTE | 2019-09-25 07:23 | NUR ---
ASSUMED CARE: PT AWAKE, WATCHING TV. NO ACUTE NEEDS OR DISTRESS NOTED AT THIS TIME.
[2019-09-25] MEDS ORDERED: ATOR40TA PO (12:35)
[2019-09-25] MEDS ORDERED: PANT20 PO (12:35)
[2019-09-25] MEDS ORDERED: CLOP75 PO (12:35)
--- NOTE | 2019-09-25 13:19 | NUR ---
CALL TO DR PANIAGUA TO REMIND HIM TO PUT IN HOME HEALTH ORDERS TO FAX TO [facility]. CONTACTED AMBULANCE COMPANY FOR RIDE FOR PT. IV DC'D WNL. DISCUSSED DISCHARGE INSTRUCTIONS, STATING TO MONITOR RADIAL SITE FOR BLEEDING AND SWELLING AND TO CALL 911 IF STARTS BLEEDING AND TO HOLD PRESSURE. INSTRUCTED TO FOLLOW UP WITH PCP AND INSTRUCTED ABOUT PRECAUTIONS WITH BLOOD THINNERS AND TO STOP PRILOSEC AND CHANGE TO PROTONIX DUE TO PLAVIX ORDERED. DENIED FURTHER QUESTIONS OR CONCERNS.
== END 2019-09-25 13:31 | disposition home or self-care (01) | DRG 281 ==
LOC: ER 18:07 → MEDS 18:08 → PCU 09-23 10:36 → MEDS 09-23 10:36 → PCU 09-24 10:45
PROVIDERS: Emergency Medicine; Hospitalist; ADMIT Internal Medicine
PROC: 8E0ZXY6 Isolation (ICD-10-PCS; principal; 2019-09-23)
PROC: 4A023N7 Measurement of Cardiac Sampling and Pressure, Left Heart, Percutaneous Approach (ICD-10-PCS; 2019-09-24)
PROC: B2111ZZ Fluoroscopy of Multiple Coronary Arteries using Low Osmolar Contrast (ICD-10-PCS; 2019-09-24)
DX: I21.4 Non-ST elevation (NSTEMI) myocardial infarction (principal); F11.20 Opioid dependence, uncomplicated; I25.2 Old myocardial infarction; J44.9 Chronic obstructive pulmonary disease, unspecified; M79.7 Fibromyalgia; E78.00 Pure hypercholesterolemia, unspecified; G89.4 Chronic pain syndrome; F31.9 Bipolar disorder, unspecified; Z79.82 Long term (current) use of aspirin; Z87.891 Personal history of nicotine dependence; K21.9 Gastro-esophageal reflux disease without esophagitis; S80.02XA Contusion of left knee, initial encounter; W18.30XA Fall on same level, unspecified, initial encounter; Y92.9 Unspecified place or not applicable; I25.10 Atherosclerotic heart disease of native coronary artery without angina pectoris; Z86.73 Personal history of transient ischemic attack (TIA), and cerebral infarction without residual deficits; Z66 Do not resuscitate; Z20.828 Contact with and (suspected) exposure to other viral communicable diseases; F41.9 Anxiety disorder, unspecified; I10 Essential (primary) hypertension
CPT/HCPCS: 0099U; 36415; 70450; 71045; 76937; 80048; 80053; 82550; 82553; 83690; 83880; 84484; 85025; 85347; 85610; 85730; 93005; 93010; 93306; 93458; 94640; 94760; 97116; 97162; 97165; 97530; 99152; 99285-25; A9270-GY; C1769; C1894; J1644; J2250; J3010; J3480; J7030; J7050; Q9967

== ENCOUNTER 2020-06-22 14:04 | Observation (INO) | payer MEDICARE, OTHER ==
[~2020-06-22] VITALS: Ht 160 cm; Wt 62.5 kg
[~2020-06-22 14:04] MED LIST changes: +ATOR40TA PO; +CLOP75 PO; +PANT20 PO
[2020-06-22 14:28] LABS: BASOPHILS ABSOLUTE AUTO 0.04 K/mm3 (0.00-0.23); BASOPHILS PERCENT AUTO 1 % (0-2); EOSINOPHILS ABSOLUTE AUTO 0.05 K/mm3 (0.00-0.68); EOSINOPHILS PERCENT AUTO 1 % (0-6); Hematocrit 38.3 % (33.0-51.0); Hemoglobin 12.4 g/dL (11.5-16.0); IMMATURE GRAN ABSOLUTE AUTO 0.02 K/mm3 (0.00-0.10); IMMATURE GRAN PERCENT AUTO 0 % (0-1); LYMPHOCYTES ABSOLUTE AUTO 1.33 K/mm3 (0.84-5.20); LYMPHOCYTES PERCENT AUTO 21 % (21-46); MONOCYTES ABSOLUTE AUTO 0.47 K/mm3 (0.16-1.47); MONOCYTES PERCENT AUTO 7 % (4-13); Mean Corpuscular HGB 31.1 pg (26.0-34.0); Mean Corpuscular HGB Conc 32.4 g/dL (31.5-36.5); Mean Corpuscular Volume 96 fL (80-100); Mean Platelet Volume 9.9 fL (9.1-12.4); NEUTROPHILS ABSOLUTE AUTO 4.56 K/mm3 (1.96-9.15); NEUTROPHILS PERCENT AUTO 70 % (41-73); Platelet Count 159 K/mm3 (150-400); RDW Coefficient Variation 12.6 % (11.7-14.2); RDW Standard Deviation 44.4 fL (35.1-46.3); Red Blood Cell Count 3.99 M/mm3 (3.80-5.20); White Blood Cell Count 6.47 K/mm3 (4.00-11.30)
[2020-06-22 14:46] LABS: Alanine Aminotransfer (ALT/SGP 24 U/L (12-78); Albumin, Blood 3.6 g/dL (3.4-5.0); Albumin/Globulin Ratio 1.2 (0.8-1.8); Alk Phos 108 U/L (50-136); Anion Gap 3 mmol/L (6-16); Aspartate Aminotrans (AST/SGOT 32 U/L (12-37); Blood Urea Nitrogen 12 mg/dL (8-24); Bun/Creatinine Ratio 15.7 (12.0-20.0); CO2, Blood 29 mmol/L (21-32); Chloride, Blood 109 mmol/L (98-108); Creatinine, Blood 0.77 mg/dL (0.40-1.00); Globulin, Blood 3.1 g/dL (2.2-4.0); Glomerular Filtration Rate >60 (60-); Glucose, Blood 90 mg/dL (70-99); Potassium, Blood 4.1 mmol/L (3.5-5.5); Sodium, Blood 141 mmol/L (136-145); Total Protein, Blood 6.7 g/dL (6.4-8.2)
[2020-06-22] MEDS ORDERED: LISI20 PO (15:22)
[2020-06-22 15:40] LABS: International Normalized Ratio 0.96; Prothrombin Time Results 10.3 Sec (9.7-11.5)
--- NOTE | 2020-06-22 17:46 | NUR ---
ADMIT PT ARRIVED TO ICU 16 AT 1645 VIA ER BED. PT IS AWAKE, ALERT, AND ORIENTED. PT IS SLOW TO RESPOND, BUT ANSWERS QUESTIONS APPROPRIATELY. PT COMPLAINS OF CHRONIC "NERVE PAIN AND KIDNEY PAIN", BUT DENIES PAIN AT THIS TIME. PT WITH EQUAL COAT PRESSER STRENGTH. PT MOVES ALL EXTREMITIES. VITAL SIGNS STABLE. PT ON ROOM AIR. IV TO LAC IS SALINE LOCKED. WILL CONTINUE TO MONITOR AND REPORT OFF TO ONCOMING RN.
--- NOTE | 2020-06-22 20:51 | NUR ---
ASSUME CARE OF PT AT APPROX 1910 FROM STEPHON Levy PT A/O, REPORTS DURING BESIDE REPORT R EYE FUZZY WITH A HX OF MACULAR DEGENERATION, WEARING GLASSES. REPORTS HAS BEEN BOTHERING HER SINCE FALL. NO CHANGES IN NEURO ASSESSMENTS SINCE ARRIVAL IN ICU. PT REPORTS 9/10 PAIN IN RT SHOULDER AND PAIN IN RT SIDE FROM FALL TODAY. PT ALSO REPORTS HEADACHE ALL DAY TODAY 11/11. MEDICATED PER EMAR. K-PAD GIVEN FOR R SHOULDER PAIN PER REQUEST. PERRLA, ABLE TO MOVE ALL EXTREMETIES, SBA TO BSC. ATTENDS FOR INCONT. NSR PER HEART MONITOR. O2 SAT >90% ON RA.
--- NOTE | 2020-06-22 21:50 | NUR ---
PT SLEEPING IN ROOM TO GIVE PM MEDS. WAKES EASY. PT REPORT HEADACHE IMPROVED AND JUST WANTS TO GO TO SLEEP.
--- NOTE | 2020-06-23 02:00 | NUR ---
CALLED DR AYON PT'S BP WAS DECREASING. ADMINISTERED 1L BOLUS LR WITN MAINTENANCE RATE OF 150 ML/HR PER ORDER. PT COMPLAINED OF NECK PAIN. ADMINISTERED TYLENOL PER EMAR. ROLLED A TOWEL UNDER NECK FOR SUPPORT.
--- NOTE | 2020-06-23 04:35 | NUR ---
CALLED DR AYON NO AM LABS ORDERED. PT WAS TO HAVE REPEAT HEAD CT 6 HRS NOTED IN H&P. NO AM LABS BUT DR AYON WILL PUT IN REPEAT CT. PT RESTING COMFORTABLY FOR THE PAST FEW HOURS.
--- NOTE | 2020-06-23 06:09 | NUR ---
SHIFT SUMMARY PT IS PLEASANT, A/O. PT'S BLOOD PRESSURE HAS IMPROVED. LR INFUSING AT RATE OF 150 ML/HR. PT HAD REPEAT CT. NO LABS ORDERED NOR DRAWN IN AM. HAS REPORTED PAIN FROM 5-7/10 IN RT SHOULDER, RIGHT SIDE, NECK, HEADACHE, MID BACK AND RIBS. GIVEN PAIN MEDS PER EMAR. ROOM AIR WITH SATS >92%. RESTING COMFORTLY
--- NOTE | 2020-06-23 09:02 | NUR ---
AM NOTE.... ASSUMED CARE OF PT APROX 0700, PT IS A&Ox4. PT IS S/P FALL AT HOME. PT IS C/O OF 7/10 RIGHT SIDED PAIN FROM THE FALL AND A HEADACHE TO THE BACK OF HER HEAD WHERE SHE FELL WELL. PT WAS MEDICATED PER NOC SHIFT RN PER EMAR. PT IS SB/SR 50'S-60'S, BP IS SOFT BUT STABLE. PT'S COREG WAS HELD D/T LOW HR THIS AM. L/S CLEAR T/O PT IS ON RA BUT WAS ON 2L NC WHILE IN BED HER O2 SATS DROPPED FROM 94% TO 86% PT WAS BREATHING SHALLOW WITH A SLOW RR. ONCE THE 2L WAS PUT ON HER O2 SAT INCREASED TO 98%. BT PRESENT AND NORMOACTIVE, ABD IS SOFT AND NONTENDER TO PALP. PT HAS TRACE EDEMA NOTED TO HER BLE. PT HAS STRESS INCONT OF THE BLADDER. ATTENDS IN PLACE ARE C/D/I. PT IS SBA TO THE BSC AND THE RECLINER CHAIR. PROVIDER AT THE BEDSIDE THIS AM, PER DR. PANIAGUA PT MAY POSSIBLY D/C HOME TODAY IF FEELING BETTER AND PT/OT CLEARS THE PT. CALL LIGHT IN REACH WILL CONTINUE TO MONITOR.
--- NOTE | 2020-06-23 10:17 | NUR ---
PT TRANSFER.... PT TRANSFER TO THE MEDICAL FLOOR AT 1015, REPORT CALLED TO MEDICAL FLOOR WENDY KHAN. ALL OF PT'S BELONGINGS PACKED AND SENT WITH THE PT. PT'S VS STABLE AT THE TIME OF TRANSFER.
--- NOTE | 2020-06-23 14:25 | NUR ---
PT WAS DISCHARGED ALERT AND ORIENTED VIA WHEELCHAIR WITH BELONGINGS ON HER PERSON. PT IV WAS DC'D AND WNL. PT WAS EDUCATED ON FOLOW UP APPOINTMENT NEEDED AND MEDICATION CHANGES. PT WAS ABLE TO VERBALIZE AND TEACH BACK. PT LEFT VIA [place] [facility].
== END 2020-06-23 14:14 | disposition home or self-care (01) ==
LOC: ER 14:04 → ICUW 14:05 → MEDS 06-23 10:11 → ENPENDDIS 06-23 11:05 → MEDS 06-23 14:14
PROVIDERS: Emergency Medicine; ADMIT Hospitalist
DX: S06.5X9A Traumatic subdural hemorrhage with loss of consciousness of unspecified duration, initial encounter (principal); I10 Essential (primary) hypertension; J44.9 Chronic obstructive pulmonary disease, unspecified; F31.9 Bipolar disorder, unspecified; I25.10 Atherosclerotic heart disease of native coronary artery without angina pectoris; E78.5 Hyperlipidemia, unspecified; K21.9 Gastro-esophageal reflux disease without esophagitis; W18.30XA Fall on same level, unspecified, initial encounter; Y93.01 Activity, walking, marching and hiking; Y92.009 Unspecified place in unspecified non-institutional (private) residence as the place of occurrence of the external cause; Z79.82 Long term (current) use of aspirin; Z88.2 Allergy status to sulfonamides; Z87.891 Personal history of nicotine dependence; Z79.891 Long term (current) use of opiate analgesic
CPT/HCPCS: 70450; 80053; 84484; 85025; 85610; 93005; 93010; 94640; 96374; 96375; 97110; 97162; 97165; 99285-25; A9270; G0378; J2405; J3010; J7120

== ENCOUNTER 2020-09-27 15:17 | Emergency (ER) | payer MEDICARE, OTHER ==
[~2020-09-27] VITALS: Ht 160 cm; Wt 59.0 kg
== END 2020-09-27 19:29 | disposition home or self-care (01) ==
LOC: ER 15:17
DX: M19.011 Primary osteoarthritis, right shoulder (principal); M50.30 Other cervical disc degeneration, unspecified cervical region; J44.9 Chronic obstructive pulmonary disease, unspecified; I25.2 Old myocardial infarction; E78.00 Pure hypercholesterolemia, unspecified; I10 Essential (primary) hypertension; Z87.891 Personal history of nicotine dependence; Z88.2 Allergy status to sulfonamides; Z79.82 Long term (current) use of aspirin; Z79.899 Other long term (current) drug therapy; Z79.02 Long term (current) use of antithrombotics/antiplatelets
CPT/HCPCS: 72125; 73030; 99284-25; A9270

== ENCOUNTER 2021-04-03 14:23 | Emergency (ER) | payer MEDICARE, OTHER ==
[~2021-04-03] VITALS: Ht 162.6 cm; Wt 58.5 kg
[2021-04-03 15:39] LABS: Source, Urine Clean Catch
[2021-04-03 15:50] LABS: BASOPHILS ABSOLUTE AUTO 0.02 K/mm3 (0.00-0.23); BASOPHILS PERCENT AUTO 0 % (0-2); EOSINOPHILS ABSOLUTE AUTO 0.11 K/mm3 (0.00-0.68); EOSINOPHILS PERCENT AUTO 2 % (0-6); Hematocrit 37.7 % (33.0-51.0); Hemoglobin 12.2 g/dL (11.5-16.0); IMMATURE GRAN PERCENT AUTO 0 % (0-1); LYMPHOCYTES ABSOLUTE AUTO 1.46 K/mm3 (0.84-5.20); LYMPHOCYTES PERCENT AUTO 32 % (21-46); MONOCYTES ABSOLUTE AUTO 0.32 K/mm3 (0.16-1.47); MONOCYTES PERCENT AUTO 7 % (4-13); Mean Corpuscular HGB 31.4 pg (26.0-34.0); Mean Corpuscular HGB Conc 32.4 g/dL (31.5-36.5); Mean Corpuscular Volume 97 fL (80-100); Mean Platelet Volume 10.5 fL (9.1-12.4); NEUTROPHILS ABSOLUTE AUTO 2.59 K/mm3 (1.96-9.15); NEUTROPHILS PERCENT AUTO 58 % (41-73); Platelet Count 147 K/mm3 (150-400); RDW Coefficient Variation 12.9 % (11.7-14.2); RDW Standard Deviation 46.1 fL (35.1-46.3); Red Blood Cell Count 3.88 M/mm3 (3.80-5.20)
[2021-04-03 15:54] LABS: Appearance, Urine Clear (Clear); Bilirubin, Urine Neg (Neg); Blood, Urine Neg (Neg); Color, Urine Yellow (P-Yellow); Glucose Qualitative, Urine Neg (Neg); Ketones, Urine Neg (Neg); Leukocyte Esterase, Urine Neg (Neg); Nitrite, Urine Neg (Neg); Protein, Urine Neg (Neg); Specific Gravity, Urine 1.015 (1.003-1.022); Urobilinogen, Urine NORM (Normal)
[2021-04-03 16:07] LABS: Alanine Aminotransfer (ALT/SGP 23 U/L (12-78); Albumin, Blood 3.4 g/dL (3.4-5.0); Albumin/Globulin Ratio 1.1 (0.8-1.8); Alk Phos 80 U/L (50-136); Anion Gap 4 mmol/L (6-16); Aspartate Aminotrans (AST/SGOT 37 U/L (12-37); Bilirubin, Total 0.7 mg/dL (0.1-1.0); Blood Urea Nitrogen 14 mg/dL (8-24); Bun/Creatinine Ratio 18.6 (12.0-20.0); CO2, Blood 32 mmol/L (21-32); Calcium, Blood 9.1 mg/dL (8.5-10.1); Chloride, Blood 106 mmol/L (98-108); Creatinine, Blood 0.75 mg/dL (0.40-1.00); Glomerular Filtration Rate >60 (60-); Glucose, Blood 112 mg/dL (70-99); Potassium, Blood 3.8 mmol/L (3.5-5.5); Sodium, Blood 142 mmol/L (136-145); Total Protein, Blood 6.4 g/dL (6.4-8.2)
[2021-04-03] MEDS ORDERED: ONDA4ODT MM (17:18)
== END 2021-04-03 17:49 | disposition home or self-care (01) ==
LOC: ER 14:23
PROVIDERS: Family Medicine
DX: R10.31 Right lower quadrant pain (principal); R10.11 Right upper quadrant pain; I25.2 Old myocardial infarction; J44.9 Chronic obstructive pulmonary disease, unspecified; Z87.891 Personal history of nicotine dependence
CPT/HCPCS: 74177; 80053; 81003; 83690; 85025; 99285-25; A9270; Q9967

== ENCOUNTER → 2021-05-21 | Outpatient (CLI) | payer MEDICARE, OTHER | LOC: LAB SHORT 15:21 | DX: D48.5 Neoplasm of uncertain behavior of skin (principal); D22.5 Melanocytic nevi of trunk | CPT/HCPCS: 88305 ==

== ENCOUNTER → 2021-11-25 | Outpatient (CLI) | payer MEDICARE, OTHER ==
[2021-11-25 15:11] LABS: BASOPHILS ABSOLUTE AUTO 0.03 K/mm3 (0.00-0.23); BASOPHILS PERCENT AUTO 1 % (0-2); EOSINOPHILS ABSOLUTE AUTO 0.09 K/mm3 (0.00-0.68); EOSINOPHILS PERCENT AUTO 2 % (0-6); Hematocrit 39.5 % (33.0-51.0); IMMATURE GRAN ABSOLUTE AUTO 0.01 K/mm3 (0.00-0.10); IMMATURE GRAN PERCENT AUTO 0 % (0-1); LYMPHOCYTES ABSOLUTE AUTO 0.74 K/mm3 (0.84-5.20); LYMPHOCYTES PERCENT AUTO 12 % (21-46); MONOCYTES ABSOLUTE AUTO 0.34 K/mm3 (0.16-1.47); MONOCYTES PERCENT AUTO 6 % (4-13); Mean Corpuscular HGB 31.7 pg (26.0-34.0); Mean Corpuscular HGB Conc 32.9 g/dL (31.5-36.5); Mean Corpuscular Volume 96 fL (80-100); Mean Platelet Volume 9.4 fL (9.1-12.4); NEUTROPHILS ABSOLUTE AUTO 4.87 K/mm3 (1.96-9.15); NEUTROPHILS PERCENT AUTO 80 % (41-73); Platelet Count 149 K/mm3 (150-400); White Blood Cell Count 6.08 K/mm3 (4.00-11.30)
[2021-11-25 15:21] LABS: Albumin, Blood 3.7 g/dL (3.4-5.0); Albumin/Globulin Ratio 1.2 (0.8-1.8); Bilirubin, Total 1.1 mg/dL (0.1-1.0); Creatinine, Blood 0.86 mg/dL (0.40-1.00); Potassium, Blood 3.7 mmol/L (3.5-5.5); Total Protein, Blood 6.7 g/dL (6.4-8.2)
== END | disposition home or self-care (01) ==
LOC: LAB SHORT 15:05 → LAB 15:05
PROVIDERS: General Practice
DX: R53.81 Other malaise (principal)
CPT/HCPCS: 80053; 85025

== ENCOUNTER 2022-02-13 18:13 | Observation (INO) | payer MEDICARE, OTHER ==
[~2022-02-13] VITALS: Ht 160 cm; Wt 56.2 kg
[2022-02-13 19:14] LABS: BASOPHILS ABSOLUTE AUTO 0.03 K/mm3 (0.00-0.23); BASOPHILS PERCENT AUTO 1 % (0-2); EOSINOPHILS ABSOLUTE AUTO 0.14 K/mm3 (0.00-0.68); EOSINOPHILS PERCENT AUTO 3 % (0-6); Hemoglobin 12.9 g/dL (11.5-16.0); IMMATURE GRAN ABSOLUTE AUTO 0.01 K/mm3 (0.00-0.10); IMMATURE GRAN PERCENT AUTO 0 % (0-1); LYMPHOCYTES ABSOLUTE AUTO 1.66 K/mm3 (0.84-5.20); LYMPHOCYTES PERCENT AUTO 34 % (21-46); MONOCYTES ABSOLUTE AUTO 0.34 K/mm3 (0.16-1.47); MONOCYTES PERCENT AUTO 7 % (4-13); Mean Corpuscular HGB 31.4 pg (26.0-34.0); Mean Corpuscular HGB Conc 33.1 g/dL (31.5-36.5); Mean Corpuscular Volume 95 fL (80-100); Mean Platelet Volume 9.8 fL (9.1-12.4); NEUTROPHILS PERCENT AUTO 55 % (41-73); Platelet Count 141 K/mm3 (150-400); RDW Standard Deviation 45.6 fL (35.1-46.3); Red Blood Cell Count 4.11 M/mm3 (3.80-5.20); White Blood Cell Count 4.88 K/mm3 (4.00-11.30)
[2022-02-13 19:41] LABS: Albumin, Blood 3.7 g/dL (3.4-5.0); Albumin/Globulin Ratio 1.2 (0.8-1.8); Bilirubin, Total 0.7 mg/dL (0.1-1.0); Bun/Creatinine Ratio 20.1 (12.0-20.0); Calcium, Blood 8.5 mg/dL (8.5-10.1); Creatinine, Blood 0.84 mg/dL (0.40-1.00); Potassium, Blood 3.9 mmol/L (3.5-5.5); Total Protein, Blood 6.7 g/dL (6.4-8.2)
[2022-02-14 05:02] LABS: BASOPHILS ABSOLUTE AUTO 0.04 K/mm3 (0.00-0.23); BASOPHILS PERCENT AUTO 1 % (0-2); EOSINOPHILS ABSOLUTE AUTO 0.11 K/mm3 (0.00-0.68); EOSINOPHILS PERCENT AUTO 3 % (0-6); Hematocrit 37.2 % (33.0-51.0); Hemoglobin 11.9 g/dL (11.5-16.0); IMMATURE GRAN ABSOLUTE AUTO 0.01 K/mm3 (0.00-0.10); IMMATURE GRAN PERCENT AUTO 0 % (0-1); LYMPHOCYTES ABSOLUTE AUTO 1.59 K/mm3 (0.84-5.20); LYMPHOCYTES PERCENT AUTO 44 % (21-46); MONOCYTES ABSOLUTE AUTO 0.38 K/mm3 (0.16-1.47); MONOCYTES PERCENT AUTO 11 % (4-13); Mean Corpuscular HGB 30.4 pg (26.0-34.0); Mean Corpuscular Volume 95 fL (80-100); Mean Platelet Volume 9.6 fL (9.1-12.4); NEUTROPHILS ABSOLUTE AUTO 1.45 K/mm3 (1.96-9.15); NEUTROPHILS PERCENT AUTO 41 % (41-73); Platelet Count 117 K/mm3 (150-400); RDW Coefficient Variation 13.1 % (11.7-14.2); RDW Standard Deviation 45.6 fL (35.1-46.3); Red Blood Cell Count 3.91 M/mm3 (3.80-5.20); White Blood Cell Count 3.58 K/mm3 (4.00-11.30)
[2022-02-14 05:28] LABS: Albumin, Blood 3.2 g/dL (3.4-5.0); Albumin/Globulin Ratio 1.2 (0.8-1.8); Bilirubin, Total 0.9 mg/dL (0.1-1.0); Bun/Creatinine Ratio 18.3 (12.0-20.0); Calcium, Blood 8.5 mg/dL (8.5-10.1); Creatinine, Blood 0.77 mg/dL (0.40-1.00); Globulin, Blood 2.7 g/dL (2.2-4.0); Potassium, Blood 3.9 mmol/L (3.5-5.5); Total Protein, Blood 5.9 g/dL (6.4-8.2)
[2022-02-14 05:51] LABS: Source, Urine Clean Catch
[2022-02-14 06:14] LABS: Appearance, Urine Clear (Clear); Bilirubin, Urine Neg (Neg); Blood, Urine Neg (Neg); Color, Urine Yellow (P-Yellow); Glucose Qualitative, Urine Neg (Neg); Ketones, Urine Neg (Neg); Leukocyte Esterase, Urine 1+ (Neg); Nitrite, Urine Neg (Neg); Protein, Urine Neg (Neg); Urobilinogen, Urine NORM (Normal)
[2022-02-14 06:22] LABS: Bacteria Rare /hpf; Red Blood Cells, Urine 0-2 /hpf (0-2); Squamous Epithelial Cells Rare /hpf (Few); White Blood Cells, Urine 0-2 /hpf (0-5)
--- NOTE | 2022-02-14 11:52 | NUR ---
DISCHARGE/SUMMARY PT DISCHARGED TO HOME, PT STATES SHE WILL MAKE HER OWN FOLLOW UP APPOINTMENT, PT WORKED WITH PT/OT, ECHO DONE, PT DID NOT WANT TO WAIT FOR DISCHARGE PAPERWORK, ENCOURAGED PT TO WAIT, PT INSISTED ON LEAVING, RESEARCH ASSOCIATE HERE, PT TAKEN OUT VIA WHEELCHAIR, PT STATES TO CALL HER CELL [phone] IF THERE ARE ANY NEW MEDICATIONS AND TO FAX THEM TO [facility] IN [place]
--- NOTE | 2022-02-14 12:50 | NUR ---
CALLED PT TO LET HER KNOW THE NEW MED AND FAXED TO [facility]
== END 2022-02-14 11:50 | disposition home or self-care (01) ==
LOC: ER 18:13 → MEDS 18:14
PROVIDERS: Physician Assistant; ADMIT Internal Medicine
DX: G45.9 Transient cerebral ischemic attack, unspecified (principal); I25.2 Old myocardial infarction; J44.9 Chronic obstructive pulmonary disease, unspecified; M79.7 Fibromyalgia; I25.10 Atherosclerotic heart disease of native coronary artery without angina pectoris; I10 Essential (primary) hypertension; E78.5 Hyperlipidemia, unspecified; F31.9 Bipolar disorder, unspecified; H35.30 Unspecified macular degeneration; Z86.73 Personal history of transient ischemic attack (TIA), and cerebral infarction without residual deficits; Z88.2 Allergy status to sulfonamides; Z79.82 Long term (current) use of aspirin; Z79.02 Long term (current) use of antithrombotics/antiplatelets; Z86.718 Personal history of other venous thrombosis and embolism; Z87.891 Personal history of nicotine dependence
CPT/HCPCS: 36415; 70450; 70496; 70498; 80053; 81001; 83880; 85025; 87086; 93005; 93010; 93306; 96372; 97161; 97165; 97530; 99285-25; A9270; G0378; J1650; J7030; Q9967

== ENCOUNTER 2022-03-27 10:09 | Emergency (ER) | payer MEDICARE, OTHER ==
[~2022-03-27] VITALS: Ht 160 cm; Wt 57.1 kg
[2022-03-27 10:40] LABS: BASOPHILS ABSOLUTE AUTO 0.03 K/mm3 (0.00-0.23); BASOPHILS PERCENT AUTO 1 % (0-2); EOSINOPHILS ABSOLUTE AUTO 0.03 K/mm3 (0.00-0.68); EOSINOPHILS PERCENT AUTO 1 % (0-6); Hematocrit 39.7 % (33.0-51.0); Hemoglobin 13.2 g/dL (11.5-16.0); IMMATURE GRAN ABSOLUTE AUTO 0.02 K/mm3 (0.00-0.10); IMMATURE GRAN PERCENT AUTO 0 % (0-1); LYMPHOCYTES ABSOLUTE AUTO 0.31 K/mm3 (0.84-5.20); LYMPHOCYTES PERCENT AUTO 6 % (21-46); MONOCYTES ABSOLUTE AUTO 0.33 K/mm3 (0.16-1.47); MONOCYTES PERCENT AUTO 6 % (4-13); Mean Corpuscular HGB 31.4 pg (26.0-34.0); Mean Corpuscular HGB Conc 33.2 g/dL (31.5-36.5); Mean Corpuscular Volume 94 fL (80-100); Mean Platelet Volume 9.4 fL (9.1-12.4); NEUTROPHILS ABSOLUTE AUTO 4.82 K/mm3 (1.96-9.15); NEUTROPHILS PERCENT AUTO 87 % (41-73); Platelet Count 132 K/mm3 (150-400); RDW Coefficient Variation 12.6 % (11.7-14.2); RDW Standard Deviation 43.7 fL (35.1-46.3); Red Blood Cell Count 4.21 M/mm3 (3.80-5.20); White Blood Cell Count 5.54 K/mm3 (4.00-11.30)
[2022-03-27 10:59] LABS: Albumin, Blood 3.3 g/dL (3.4-5.0); Bilirubin, Total 1.1 mg/dL (0.1-1.0); Bun/Creatinine Ratio 10.9 (12.0-20.0); Calcium, Blood 8.5 mg/dL (8.5-10.1); Creatinine, Blood 0.73 mg/dL (0.40-1.00); Globulin, Blood 3.2 g/dL (2.2-4.0); Magnesium, Blood 2.3 mg/dL (1.6-2.4); Potassium, Blood 3.9 mmol/L (3.5-5.5); Total Protein, Blood 6.5 g/dL (6.4-8.2)
[2022-03-27 11:37] LABS: Source, Urine Clean Catch
[2022-03-27 11:40] LABS: Appearance, Urine Clear (Clear); Bilirubin, Urine Neg (Neg); Blood, Urine Neg (Neg); Color, Urine Yellow (P-Yellow); Glucose Qualitative, Urine Neg (Neg); Ketones, Urine Neg (Neg); Leukocyte Esterase, Urine Neg (Neg); Nitrite, Urine Neg (Neg); Protein, Urine Neg (Neg); Urobilinogen, Urine NORM (Normal)
[2022-03-27 12:17] LABS: Influenza A, PCR NEGATIVE (NEGATIVE); Influenza B, PCR NEGATIVE (NEGATIVE); Resp Syncytial Virus, PCR NEGATIVE (NEGATIVE); SARS-Cov-2 (COVID-19) PCR, MMC NEGATIVE (NEGATIVE)
== END 2022-03-27 13:23 | disposition home or self-care (01) ==
LOC: ER 10:09
PROVIDERS: Emergency Medicine
DX: R53.1 Weakness (principal); E86.1 Hypovolemia; I25.2 Old myocardial infarction; J44.9 Chronic obstructive pulmonary disease, unspecified; I25.10 Atherosclerotic heart disease of native coronary artery without angina pectoris; I10 Essential (primary) hypertension; Z88.2 Allergy status to sulfonamides; Z79.899 Other long term (current) drug therapy; Z79.82 Long term (current) use of aspirin; Z20.822 Contact with and (suspected) exposure to COVID-19
CPT/HCPCS: 0241U; 71045; 80053; 81003; 83605; 83735; 83880; 84484; 85025; 93005; 93010; J7030

== ENCOUNTER 2023-02-25 18:45 | Emergency (ER) | payer MEDICARE, OTHER ==
[~2023-02-25] VITALS: Ht 160 cm; Wt 54.4 kg
[2023-02-25 19:03] LABS: BASOPHILS ABSOLUTE AUTO 0.03 K/mm3 (0.00-0.23); BASOPHILS PERCENT AUTO 1 % (0-2); EOSINOPHILS ABSOLUTE AUTO 0.11 K/mm3 (0.00-0.68); EOSINOPHILS PERCENT AUTO 3 % (0-6); Hematocrit 38.7 % (33.0-51.0); Hemoglobin 12.8 g/dL (11.5-16.0); IMMATURE GRAN ABSOLUTE AUTO 0.01 K/mm3 (0.00-0.10); IMMATURE GRAN PERCENT AUTO 0 % (0-1); LYMPHOCYTES ABSOLUTE AUTO 1.65 K/mm3 (0.84-5.20); LYMPHOCYTES PERCENT AUTO 39 % (21-46); MONOCYTES ABSOLUTE AUTO 0.46 K/mm3 (0.16-1.47); MONOCYTES PERCENT AUTO 11 % (4-13); Mean Corpuscular HGB 31.4 pg (26.0-34.0); Mean Corpuscular HGB Conc 33.1 g/dL (31.5-36.5); Mean Corpuscular Volume 95 fL (80-100); Mean Platelet Volume 10.1 fL (9.1-12.4); NEUTROPHILS ABSOLUTE AUTO 1.99 K/mm3 (1.96-9.15); NEUTROPHILS PERCENT AUTO 47 % (41-73); Platelet Count 173 K/mm3 (150-400); RDW Coefficient Variation 13.2 % (11.7-14.2); Red Blood Cell Count 4.08 M/mm3 (3.80-5.20); White Blood Cell Count 4.25 K/mm3 (4.00-11.30)
[2023-02-25 19:46] LABS: Albumin, Blood 3.7 g/dL (3.4-5.0); Albumin/Globulin Ratio 1.2 (0.8-1.8); Bilirubin, Total 0.8 mg/dL (0.1-1.0); Bun/Creatinine Ratio 15.4 (12.0-20.0); Creatinine, Blood 0.78 mg/dL (0.40-1.00); Globulin, Blood 3.1 g/dL (2.2-4.0); Potassium, Blood 4.1 mmol/L (3.5-5.5); Total Protein, Blood 6.8 g/dL (6.4-8.2)
[2023-02-25 19:59] LABS: Source, Urine Clean Catch
[2023-02-25 20:11] LABS: Appearance, Urine Clear (Clear); Bilirubin, Urine Neg (Neg); Blood, Urine Neg (Neg); Color, Urine Yellow (P-Yellow); Glucose Qualitative, Urine Neg (Neg); Ketones, Urine Neg (Neg); Leukocyte Esterase, Urine Neg (Neg); Nitrite, Urine Neg (Neg); Protein, Urine Neg (Neg); Specific Gravity, Urine 1.015 (1.003-1.022); Urobilinogen, Urine NORM (Normal)
[2023-02-26 03:00] VITALS: BP 130/71
== END 2023-02-26 03:34 | disposition home or self-care (01) ==
LOC: ER 18:45
PROVIDERS: Student in an Organized Health Care Education/Training Program
DX: R10.84 Generalized abdominal pain (principal); I10 Essential (primary) hypertension; I25.10 Atherosclerotic heart disease of native coronary artery without angina pectoris; I25.2 Old myocardial infarction; F31.9 Bipolar disorder, unspecified; Z86.73 Personal history of transient ischemic attack (TIA), and cerebral infarction without residual deficits; Z86.718 Personal history of other venous thrombosis and embolism; Z79.899 Other long term (current) drug therapy; Z79.02 Long term (current) use of antithrombotics/antiplatelets; Z79.82 Long term (current) use of aspirin
CPT/HCPCS: 74177; 80053; 81003; 83690; 85025; 93005; 93010; 96374-59; 99284-25; J1885; Q9967

== ENCOUNTER 2023-04-30 07:40 | Day surgery (SDC) | payer MEDICARE, OTHER ==
[2023-04-30] VITALS (21 sets, daily range): BP systolic 116–160; BP diastolic 61–85
[~2023-04-30] VITALS: Ht 160 cm; Wt 53.5 kg
[~2023-04-30 07:40] MED LIST changes: +ALEN70 PO; +NITR.4SL SL; +Preservision S1 EACH PO
--- NOTE | 2023-04-30 11:00 | NUR ---
04/30/23 Anna Marie Baig HISTORY, CHART, MEDICATIONS AND ALLERGIES REVIEWED BEFORE START OF PROCEDURE. PATIENT CONFIRMS NPO STATUS AND AGREES WITH SCHEDULED PROCEDURE. 3-LEAD EKG REVIEWED WITH PHYSICIAN PRIOR TO START OF PROCEDURE. MONITOR INTACT WITH CONTINUOUS PULSE OXIMETRY,CAPNOGRAPHY, 3-LEAD EKG, INTERMITTENT BP. SUPPLEMENTAL O2 TO BE TITRATED THROUGHOUT PROCEDURE TO MAINTAIN O2 SATURATION ABOVE 90%. PATIENT DETERMINED TO BE ASA APPROPRIATE FOR PROPOFOL SEDATION PRIOR TO START OF PROCEDURE BY DR. HERNANDEZ
--- NOTE | 2023-04-30 11:55 | NUR ---
1149 REPORT RECEIVED FROM ROSEANNE PARSNO RN. VSS. PT ABLE TO REPOSITION SELF IN BED. PT REQUESTING PO FOOD AND FLUIDS AND TOLERATING THEM WELL. PT DENIES PAIN, NAUSEA OR OTHER DISCOMFORTS AT THIS TIME. PT FRIEND AT BEDSIDE.
== END 2023-04-30 12:16 | disposition home or self-care (01) ==
LOC: ORSCMMR 07:40 → ORD 10:00 → ORSCMMR 10:00
PROVIDERS: Internal Medicine Gastroenterology
PROC: 0DBM8ZX Excision of Descending Colon, Via Natural or Artificial Opening Endoscopic, Diagnostic (ICD-10-PCS; principal; 2023-04-30 10:00)
DX: Z12.11 Encounter for screening for malignant neoplasm of colon (principal); Z86.010 Personal history of colon polyps; D12.4 Benign neoplasm of descending colon; K57.30 Diverticulosis of large intestine without perforation or abscess without bleeding; Z86.73 Personal history of transient ischemic attack (TIA), and cerebral infarction without residual deficits; J44.9 Chronic obstructive pulmonary disease, unspecified; E78.00 Pure hypercholesterolemia, unspecified; F31.9 Bipolar disorder, unspecified; Z79.82 Long term (current) use of aspirin; Z79.02 Long term (current) use of antithrombotics/antiplatelets; Z79.899 Other long term (current) drug therapy
CPT/HCPCS: 88305; J2704; J7120

== ENCOUNTER 2023-06-11 11:12 | Emergency (ER) | payer MEDICARE, OTHER ==
[~2023-06-11] VITALS: Ht 160 cm; Wt 54.4 kg
[2023-06-11 11:41] LABS: BASOPHILS ABSOLUTE AUTO 0.03 K/mm3 (0.00-0.23); BASOPHILS PERCENT AUTO 1 % (0-2); EOSINOPHILS ABSOLUTE AUTO 0.09 K/mm3 (0.00-0.68); EOSINOPHILS PERCENT AUTO 2 % (0-6); Hematocrit 36.5 % (33.0-51.0); Hemoglobin 11.7 g/dL (11.5-16.0); IMMATURE GRAN ABSOLUTE AUTO 0.01 K/mm3 (0.00-0.10); IMMATURE GRAN PERCENT AUTO 0 % (0-1); LYMPHOCYTES ABSOLUTE AUTO 1.23 K/mm3 (0.84-5.20); LYMPHOCYTES PERCENT AUTO 26 % (21-46); MONOCYTES ABSOLUTE AUTO 0.31 K/mm3 (0.16-1.47); MONOCYTES PERCENT AUTO 6 % (4-13); Mean Corpuscular HGB 30.8 pg (26.0-34.0); Mean Corpuscular HGB Conc 32.1 g/dL (31.5-36.5); Mean Corpuscular Volume 96 fL (80-100); NEUTROPHILS ABSOLUTE AUTO 3.16 K/mm3 (1.96-9.15); NEUTROPHILS PERCENT AUTO 65 % (41-73); Platelet Count 167 K/mm3 (150-400); RDW Coefficient Variation 13.8 % (11.7-14.2); RDW Standard Deviation 48.6 fL (35.1-46.3); White Blood Cell Count 4.83 K/mm3 (4.00-11.30)
[2023-06-11] MEDS ORDERED: Ketorolac Tromethamine 30mg Vial IV ONE (12:05)
[2023-06-11 12:19] LABS: Albumin, Blood 3.2 g/dL (3.4-5.0); Albumin/Globulin Ratio 1.1 (0.8-1.8); Bilirubin, Total 0.7 mg/dL (0.1-1.0); Bun/Creatinine Ratio 18.3 (12.0-20.0); Calcium, Blood 8.4 mg/dL (8.5-10.1); Creatinine, Blood 0.65 mg/dL (0.40-1.00); Globulin, Blood 2.8 g/dL (2.2-4.0); Potassium, Blood 4.8 mmol/L (3.5-5.5)
[2023-06-11] MEDS ORDERED: OxyCODONE HCL 5 MG TAB PO ONE (12:25)
[2023-06-11 14:30] VITALS: BP 131/79
== END 2023-06-11 14:52 | disposition home or self-care (01) ==
LOC: ER 11:12
PROVIDERS: Student in an Organized Health Care Education/Training Program
DX: R07.89 Other chest pain (principal); R00.1 Bradycardia, unspecified; M79.7 Fibromyalgia; I25.10 Atherosclerotic heart disease of native coronary artery without angina pectoris; I25.2 Old myocardial infarction; I48.91 Unspecified atrial fibrillation; I10 Essential (primary) hypertension; J44.9 Chronic obstructive pulmonary disease, unspecified; F31.9 Bipolar disorder, unspecified; Z88.1 Allergy status to other antibiotic agents; Z88.2 Allergy status to sulfonamides; Z79.82 Long term (current) use of aspirin; Z79.02 Long term (current) use of antithrombotics/antiplatelets; Z79.899 Other long term (current) drug therapy
CPT/HCPCS: 71046; 80053; 84484; 85025; 93005; 93010; 96374; 99285-25; A9270; J1885

== ENCOUNTER 2023-09-07 13:34 | Emergency (ER) | payer MEDICARE, OTHER ==
[~2023-09-07] VITALS: Ht 160 cm; Wt 52.6 kg
[2023-09-07] MEDS ORDERED: ALPR.5 PO (13:49)
[2023-09-07] MEDS ORDERED: DERMACINRX FOL1 EAC2 PO (13:50)
[2023-09-07] MEDS ORDERED: LORA10ER PO (13:51)
[2023-09-07] MEDS ORDERED: Senna-Extra17.2 MG PO (13:52)
[2023-09-07 14:24] LABS: BASOPHILS ABSOLUTE AUTO 0.03 K/mm3 (0.00-0.23); BASOPHILS PERCENT AUTO 1 % (0-2); EOSINOPHILS ABSOLUTE AUTO 0.04 K/mm3 (0.00-0.68); EOSINOPHILS PERCENT AUTO 1 % (0-6); Hemoglobin 13.5 g/dL (11.5-16.0); IMMATURE GRAN ABSOLUTE AUTO 0.03 K/mm3 (0.00-0.10); IMMATURE GRAN PERCENT AUTO 1 % (0-1); LYMPHOCYTES ABSOLUTE AUTO 1.53 K/mm3 (0.84-5.20); LYMPHOCYTES PERCENT AUTO 27 % (21-46); MONOCYTES ABSOLUTE AUTO 0.42 K/mm3 (0.16-1.47); MONOCYTES PERCENT AUTO 7 % (4-13); Mean Corpuscular HGB 31.4 pg (26.0-34.0); Mean Corpuscular HGB Conc 32.9 g/dL (31.5-36.5); Mean Corpuscular Volume 95 fL (80-100); Mean Platelet Volume 9.9 fL (9.1-12.4); NEUTROPHILS ABSOLUTE AUTO 3.59 K/mm3 (1.96-9.15); NEUTROPHILS PERCENT AUTO 64 % (41-73); Platelet Count 161 K/mm3 (150-400); RDW Coefficient Variation 13.7 % (11.7-14.2); RDW Standard Deviation 48.4 fL (35.1-46.3); White Blood Cell Count 5.64 K/mm3 (4.00-11.30)
[2023-09-07] MEDS ORDERED: Ipratropium/Albuterol SulF 2.5-0.5MG/3 ML Amp INH ONE (14:30)
[2023-09-07 14:41] LABS: Albumin/Globulin Ratio 1.2 (0.8-1.8); Bilirubin, Total 0.7 mg/dL (0.1-1.0); Calcium, Blood 9.3 mg/dL (8.5-10.1); Creatinine, Blood 0.73 mg/dL (0.40-1.00); Globulin, Blood 3.2 g/dL (2.2-4.0); Potassium, Blood 4.1 mmol/L (3.5-5.5); Total Protein, Blood 7.2 g/dL (6.4-8.2)
[2023-09-07 15:20] LABS: Base Excess Venous 3.4 mmol/L; Bicarbonate Venous 26.5 mmol/L (24.0-30.0); PCO2 Venous 45.8 mmHg (38-42)
[2023-09-07] MEDS ORDERED: PRED20 PO (16:20)
[2023-09-07] MEDS ORDERED: ALBU2.5V5 INH (16:20)
[2023-09-07] MEDS ORDERED: MethylPREDNISolone Sod Succ 125 MG Vial IV ONE (16:20)
[2023-09-07 17:00] VITALS: BP 132/78
== END 2023-09-07 17:20 | disposition home or self-care (01) ==
LOC: ER 13:34
PROVIDERS: Student in an Organized Health Care Education/Training Program
DX: J44.1 Chronic obstructive pulmonary disease with (acute) exacerbation (principal); Z88.2 Allergy status to sulfonamides; Z88.8 Allergy status to other drugs, medicaments and biological substances; Z79.899 Other long term (current) drug therapy; Z79.82 Long term (current) use of aspirin; I25.2 Old myocardial infarction; I25.10 Atherosclerotic heart disease of native coronary artery without angina pectoris; I10 Essential (primary) hypertension; Z87.891 Personal history of nicotine dependence
CPT/HCPCS: 71046; 80053; 82803; 83880; 84484; 85025; 93005; 93010; 94640; 94664; 96374; 99285-25; J2930

== ENCOUNTER → 2024-01-21 | Outpatient (CLI) | payer MEDICARE, OTHER ==
[~2024-01-21] MED LIST changes: +ALPR.5 PO; +ATROVENT HFA12.9 GM INH; +DERMACINRX FOL1 EAC2 PO; +LORA10ER PO; +PRED20 PO; +Senna-Extra17.2 MG PO
== END ==
LOC: LAB SHORT 13:41 → LAB 13:41
DX: R63.4 Abnormal weight loss (principal)
CPT/HCPCS: 84443

== ENCOUNTER 2024-07-05 11:02 | Emergency (ER) | payer MEDICARE, OTHER ==
[~2024-07-05] VITALS: Ht 160 cm; Wt 54.4 kg
[~2024-07-05 11:02] MED LIST changes: +ALBU90OI INH; -DERMACINRX FOL1 EAC2 PO; +MIRALAX17 GM PO; +OYSTER SHELL C500 MG PO; +PLAVIX75 MG PO; +RED YEAST RICE55 MG PO; +TRELEGY ELLIPT1 EAC1 INH; +VITAMIN D5000 UNIT PO; +Vitamin B Comple1 EA PO; +XANAX0.25 MG PO
[2024-07-05 11:48] LABS: BASOPHILS ABSOLUTE AUTO 0.01 K/mm3 (0.00-0.23); BASOPHILS PERCENT AUTO 0 % (0-2); EOSINOPHILS ABSOLUTE AUTO 0.01 K/mm3 (0.00-0.68); EOSINOPHILS PERCENT AUTO 0 % (0-6); Hematocrit 37.9 % (33.0-51.0); Hemoglobin 12.7 g/dL (11.5-16.0); IMMATURE GRAN ABSOLUTE AUTO 0.01 K/mm3 (0.00-0.10); IMMATURE GRAN PERCENT AUTO 0 % (0-1); LYMPHOCYTES ABSOLUTE AUTO 0.59 K/mm3 (0.84-5.20); LYMPHOCYTES PERCENT AUTO 15 % (21-46); MONOCYTES ABSOLUTE AUTO 0.36 K/mm3 (0.16-1.47); MONOCYTES PERCENT AUTO 9 % (4-13); Mean Corpuscular HGB 31.5 pg (26.0-34.0); Mean Corpuscular HGB Conc 33.5 g/dL (31.5-36.5); Mean Corpuscular Volume 94 fL (80-100); Mean Platelet Volume 9.7 fL (9.1-12.4); NEUTROPHILS ABSOLUTE AUTO 3.02 K/mm3 (1.96-9.15); NEUTROPHILS PERCENT AUTO 75 % (41-73); Platelet Count 122 K/mm3 (150-400); RDW Coefficient Variation 13.2 % (11.7-14.2); RDW Standard Deviation 45.6 fL (35.1-46.3); Red Blood Cell Count 4.03 M/mm3 (3.80-5.20)
[2024-07-05 12:18] LABS: Albumin/Globulin Ratio 0.9 (0.8-1.8); Bilirubin, Total 0.5 mg/dL (0.1-1.0); Bun/Creatinine Ratio 26.1 (12.0-20.0); Calcium, Blood 8.2 mg/dL (8.5-10.1); Creatinine, Blood 0.92 mg/dL (0.40-1.00); Globulin, Blood 3.3 g/dL (2.2-4.0); Potassium, Blood 4.1 mmol/L (3.5-5.5); Total Protein, Blood 6.3 g/dL (6.4-8.2)
[2024-07-05 12:58] LABS: Influenza B, PCR NEGATIVE (NEGATIVE); Resp Syncytial Virus, PCR NEGATIVE (NEGATIVE); SARS-Cov-2 (COVID-19) PCR, MMC NEGATIVE (NEGATIVE)
[2024-07-05 13:06] LABS: Influenza A, PCR POSITIVE (NEGATIVE)
[2024-07-05] MEDS ORDERED: ONDA4ODT MM (13:20)
[2024-07-05] MEDS ORDERED: LOPE2C PO (13:20)
[2024-07-05 13:24] LABS: Source, Urine Clean Catch
[2024-07-05 13:56] LABS: Appearance, Urine Clear (Clear); Bilirubin, Urine Neg (Neg); Blood, Urine Neg (Neg); Color, Urine Yellow (P-Yellow); Glucose Qualitative, Urine Neg (Neg); Ketones, Urine 1+ (Neg); Leukocyte Esterase, Urine Neg (Neg); Nitrite, Urine Neg (Neg); Protein, Urine Neg (Neg); Urobilinogen, Urine NORM (Normal)
[2024-07-05 14:15] VITALS: BP 141/75
== END 2024-07-05 14:34 | disposition home or self-care (01) ==
LOC: ER 11:02
PROVIDERS: Emergency Medicine
DX: R55 Syncope and collapse (principal); R11.2 Nausea with vomiting, unspecified; J10.1 Influenza due to other identified influenza virus with other respiratory manifestations; Z87.891 Personal history of nicotine dependence; J44.9 Chronic obstructive pulmonary disease, unspecified; I10 Essential (primary) hypertension; Z88.2 Allergy status to sulfonamides; Z88.1 Allergy status to other antibiotic agents; Z79.84 Long term (current) use of oral hypoglycemic drugs; Z88.9 Allergy status to unspecified drugs, medicaments and biological substances; Z88.8 Allergy status to other drugs, medicaments and biological substances; Z79.899 Other long term (current) drug therapy; Z79.02 Long term (current) use of antithrombotics/antiplatelets; Z79.51 Long term (current) use of inhaled steroids
CPT/HCPCS: 0241U; 71045; 80053; 81003; 85025; 93005; 93010; 99285-25

== ENCOUNTER 2024-12-23 09:30 | Day surgery (SDC) | payer MEDICARE, OTHER ==
[~2024-12-23 09:30] MED LIST changes: +BENADRYL25 MG PO; +LOPE2C PO; +TRELEGY ELLIPT1 EACH INH
[2024-12-23] MEDS ORDERED: Lidocaine 2%-Epineph 1:100000 20 ML MDV ONE ×2 (10:03→10:54)
[2024-12-23 10:09] VITALS: BP 139/78
[2024-12-23 10:10] VITALS: BP 117/76
[2024-12-23 10:15] VITALS: BP 129/73
== END 2024-12-23 13:51 | disposition home or self-care (01) ==
LOC: MHTC 09:30
DX: R55 Syncope and collapse (principal); I25.10 Atherosclerotic heart disease of native coronary artery without angina pectoris; I25.2 Old myocardial infarction; I10 Essential (primary) hypertension; E78.5 Hyperlipidemia, unspecified; J44.9 Chronic obstructive pulmonary disease, unspecified; R00.1 Bradycardia, unspecified; D50.9 Iron deficiency anemia, unspecified; G89.29 Other chronic pain; M54.9 Dorsalgia, unspecified; Z86.711 Personal history of pulmonary embolism; Z86.718 Personal history of other venous thrombosis and embolism; Z86.73 Personal history of transient ischemic attack (TIA), and cerebral infarction without residual deficits; Z79.02 Long term (current) use of antithrombotics/antiplatelets; Z79.899 Other long term (current) drug therapy; Z88.1 Allergy status to other antibiotic agents; Z88.2 Allergy status to sulfonamides; Z88.8 Allergy status to other drugs, medicaments and biological substances
CPT/HCPCS: 33285; C1764

== ENCOUNTER 2025-02-23 09:47 | Day surgery (SDC) | payer MEDICARE, OTHER ==
[~2025-02-23] VITALS: Ht 157.5 cm; Wt 58.1 kg
[~2025-02-23 09:47] MED LIST changes: +ISOSORBIDE MONO60 MG PO; -Isosorbide Mono30 MG PO
--- NOTE | 2025-02-23 10:51 | NUR ---
History, Chart, Medications and Allergies reviewed before start of procedure. Pre-Op teaching done. Pt verbalizes understanding. Patient confirms NPO status and agrees with scheduled surgery. Patient states colon prep results DARK YELLOW.
--- NOTE | 2025-02-23 11:10 | NUR ---
02/23/25 1110 Anna Marie Winchester MONITOR INTACT WITH CONTINUOUS PULSE OXIMETRY, CONTINUOUS END TITAL CO2, 3-LEAD EKG AND INTERMITTENT BLOOD PRESSURE. O2 VIA POM INTACT THROUGHOUT SEDATION/PROCEDURE. See Anesthesia record FROM DR. BAILEY.
[2025-02-23 11:55] VITALS: BP 142/81
== END 2025-02-23 23:00 | disposition home or self-care (01) ==
LOC: ORSCMMR 09:47 → ORD 11:00 → ORSCMMR 11:00
PROVIDERS: Internal Medicine Gastroenterology
PROC: 0DBL8ZX Excision of Transverse Colon, Via Natural or Artificial Opening Endoscopic, Diagnostic (ICD-10-PCS; principal; 2025-02-23 11:00)
PROC: 0DBM8ZX Excision of Descending Colon, Via Natural or Artificial Opening Endoscopic, Diagnostic (ICD-10-PCS; principal; 2025-02-23 11:00)
DX: K62.5 Hemorrhage of anus and rectum (principal); D12.4 Benign neoplasm of descending colon; D37.4 Neoplasm of uncertain behavior of colon; Z86.0101 Personal history of adenomatous and serrated colon polyps; J44.9 Chronic obstructive pulmonary disease, unspecified; I10 Essential (primary) hypertension; I25.10 Atherosclerotic heart disease of native coronary artery without angina pectoris; I25.2 Old myocardial infarction; Z86.73 Personal history of transient ischemic attack (TIA), and cerebral infarction without residual deficits; Z86.718 Personal history of other venous thrombosis and embolism; Z86.711 Personal history of pulmonary embolism; F31.89 Other bipolar disorder; Z79.02 Long term (current) use of antithrombotics/antiplatelets; Z79.899 Other long term (current) drug therapy; Z87.891 Personal history of nicotine dependence
CPT/HCPCS: 88305; J2704; J7120